=== PATIENT | female | born 1935 | race Caucasian/White ===

== ENCOUNTER 2023-04-07 09:27 | Emergency (ER) | payer MEDICARE, OTHER ==
[~2023-04-07] VITALS: Ht 152.4 cm; Wt 72.1 kg
[2023-04-07] MEDS ORDERED: HYDR-4303 PO (12:16)
[2023-04-07 12:56] VITALS: BP 136/73; TEMP 98.4; O2SAT 98
== END 2023-04-07 13:03 | disposition home or self-care (01) ==
LOC: ER 09:46
DX: S42.492A Other displaced fracture of lower end of left humerus, initial encounter for closed fracture (principal); I10 Essential (primary) hypertension; J45.909 Unspecified asthma, uncomplicated; Z88.0 Allergy status to penicillin; Z88.1 Allergy status to other antibiotic agents; W01.0XXA Fall on same level from slipping, tripping and stumbling without subsequent striking against object, initial encounter; Y93.01 Activity, walking, marching and hiking; Y92.89 Other specified places as the place of occurrence of the external cause; Y99.8 Other external cause status
CPT/HCPCS: 73030-TC; 73080-TC; 73200-TC; 73564-TC